=== PATIENT | male | born 1945 | race Caucasian/White ===

== ENCOUNTER → 2018-03-15 | Outpatient (CLI) | payer MEDICARE ==
--- NOTE | 2018-03-15 15:20 | US ---
EXAMINATION TYPE: US venous doppler duplex LE LT DATE OF EXAM: 03/15/2018 2:53 PM COMPARISON: NONE CLINICAL HISTORY: R60.0 Localized edema. left big toe swelling x 6 days. No hx of blood clots. No l eg redness or swelling. SIDE PERFORMED: Left TECHNIQUE: The lower extremity deep venous system is examined utilizing real time linear array sonog marai with graded compression, doppler sonography and color-flow sonography. VESSELS IMAGED: External Iliac Vein (EIV) Common Femoral Vein Deep Femoral Vein Greater Saphenous Vein * Femoral Vein Popliteal Vein Small Saphenous Vein * Proximal Calf Veins (* superficial vessels) Grayscale, color doppler, spectral doppler imaging performed of the deep veins of the left lower extr emity. There is normal flow, compressibility, vascular waveforms. Left Leg: Negative for DVT IMPRESSION: No sonographic evidence of deep venous thrombosis within the left lower extremity.
== END ==
LOC: RADUSWWP 14:29
PROVIDERS: ATTEND Physician Assistant
DX: R60.0 Localized edema (principal)

== ENCOUNTER → 2019-01-26 | Outpatient (CLI) | payer MEDICARE ==
--- NOTE | 2019-01-26 23:26 | MR ---
EXAMINATION TYPE: MR ankle RT wo con DATE OF EXAM: 01/26/2019 COMPARISON: None HISTORY: Right ankle pain Standard multiplanar, multisequence MRI departmental protocol Multiplanar, multisequence images of the ankle were acquired. Diffusion weighted imaging was performe d. FINDINGS: The Achilles tendon is intact. Plantar fascia appears intact. There is a small plantar calc aneal spur. The medial and lateral flexor tendons appear intact. There is a small ankle joint effusio n. The collateral ligaments appear intact. Ankle mortise is anatomic. I see no focal bone destruction . There is mild increased signal in the anterior talus on the T2 images consistent with mild edema. T here is minor spurring at the talonavicular joint. I see no fracture line. There is mild spurring of the posterior malleolus. There is mild increased joint fluid at the tarsome tatarsal joints. IMPRESSION: There is a 1.5 cm area of abnormal signal in the lateral aspect of the anterior talus at the talonavi cular joint. This could be focal area of avascular necrosis or a bone bruise.. No fracture line seen. No evidence of ligamentous tear. Minimal joint fluid consistent with mild ankle joint synovitis. Als o mild increased fluid at the tarsometatarsal joints also consistent with some synovitis.
== END | disposition home or self-care (01) ==
LOC: RADMRIMAIN 12:49
PROVIDERS: ATTEND Orthopaedic Surgery
DX: M19.071 Primary osteoarthritis, right ankle and foot (principal); I51.9 Heart disease, unspecified

== ENCOUNTER 2019-05-13 06:44 | Day surgery (SDC) | payer MEDICARE ==
[2019-05-10 13:54] VITALS: BMI 27.7
[~2019-05-13 06:44] MED LIST: LACTATED RINGERS 1,000 ML IV SCH
[2019-05-13 07:15] VITALS: RESP 18; TEMP 97.5
[2019-05-13] MEDS ORDERED: LACTATED RINGERS 1,000 ML IV ONE ×3 (07:19)
[2019-05-13] MEDS ORDERED: LIDOCAINE 1% INJ 10MG/ML (20 ML MDV) ONE (07:27)
[2019-05-13] MEDS ORDERED: PROPOFOL 10 MG/ML 20 ML VIAL IV ONE (07:27)
--- NOTE | 2019-05-13 07:50 | P.PCN ---
Date of Procedure: 05/13/19 Procedure(s) Performed: BRIEF HISTORY: Patient is a 74-year-old pleasant male scheduled for an elective colonoscopy as a part of evaluation of prior history of colon polyps. His last colonoscopy was 5 years ago. PROCEDURE PERFORMED: Colonoscopy. PREOPERATIVE DIAGNOSIS: History of colon polyps. IV sedation per Anesthesia. PROCEDURE: After informed consent was obtained, the patient, was brought into the endoscopy unit. IV sedation was administered by Anesthesia under continuous monitoring. Digital rectal examination was normal. Initially the Olympus CF-160 flexible video colonoscope was then inserted in the rectum, gradually advanced into the cecum without any difficulty. Careful examination was performed as the scope was gradually being withdrawn. Ileocecal valve and the appendiceal orifice were visualized and appeared normal. Prep was excellent. Mucosa of the cecum, ascending colon, transverse colon, descending colon, sigmoid colon, and rectum appeared normal. Retroflexion was performed in the rectum and no lesions were seen. Scattered sigmoid diverticulosis seen. The patient tolerated the procedure well. IMPRESSION: Normal-appearing colon from rectum to cecum with no evidence of colorectal neoplasia. Scattered sigmoid diverticulosis. RECOMMENDATIONS: Findings of this examination were discussed with the patient as well as his family. He was advised to have a repeat surveillance colonoscopy in 5 years from now because of the prior history of colon polyps..
[2019-05-13 08:10] VITALS: BP 110/68; PULSE 57
== END 2019-05-13 08:48 | disposition home or self-care (01) ==
LOC: ORWHC2ENDO 06:44
PROVIDERS: ATTEND Internal Medicine Gastroenterology
DX: Z12.11 Encounter for screening for malignant neoplasm of colon (principal); K57.30 Diverticulosis of large intestine without perforation or abscess without bleeding; Z86.010 Personal history of colon polyps; I25.10 Atherosclerotic heart disease of native coronary artery without angina pectoris; E78.5 Hyperlipidemia, unspecified; E11.9 Type 2 diabetes mellitus without complications; E07.9 Disorder of thyroid, unspecified; K21.9 Gastro-esophageal reflux disease without esophagitis; Z95.5 Presence of coronary angioplasty implant and graft; Z95.1 Presence of aortocoronary bypass graft; Z79.82 Long term (current) use of aspirin; Z79.890 Hormone replacement therapy; Z79.899 Other long term (current) drug therapy
CPT/HCPCS: J2001; J2704; G0105; 45378

== ENCOUNTER → 2020-06-18 | Outpatient (CLI) | payer MEDICARE ==
--- NOTE | 2020-06-18 09:47 | US ---
EXAMINATION TYPE: US abdomen complete DATE OF EXAM: 06/18/2020 COMPARISON: NONE CLINICAL HISTORY: 75-year-old male R10.33. With periumbilical pain TECHNIQUE: Multiple sonographic images of the abdomen are obtained. FINDINGS: EXAM MEASUREMENTS: Liver Length: 13.9 cm Gallbladder Wall: 0.2 cm CBD: 0.5 cm Spleen: 8.9 cm Right Kidney: 9.8 x 5.3 x 4.7 cm Left Kidney: 9.7 x 5.0 x 4.8 cm Mfts notes: Excessive overlying bowel gas, exam limited. Pancreas: Obscured by overlying bowel gas Liver: Limited visualization, left lobe obscured, portions visualized show slight increased echogenic ity. Gallbladder: wnl, partially obscured Evidence for sonographic Earl's sign: no CBD: wnl Spleen: partially visualization. Slightly unusual contour. Right Kidney: portions visualized wnl. No hydronephrosis. Left Kidney: portions visualized wnl no hydronephrosis. Upper IVC: obscured by overlying bowel Abd Aorta: partially obscured by bowel gas, portions visualized wnl IMPRESSION: 1. Overlying bowel gas limits the exam. 2. Portions of the visualized liver show a slight echogenic appearance suggesting mild hepatic steato sis. 2. Unusual contour of the spleen may be on a technical basis. Consider contrast enhanced CT to furthe r evaluate.
--- NOTE | 2020-06-18 12:16 | FL ---
EXAMINATION TYPE: FL UGI w small bowel DATE OF EXAM: 06/18/2020 COMPARISON: NONE HISTORY: Lower abdominal pain worse when laying flat for a couple weeks. TECHNIQUE: A double contrast UGI study is performed with small bowel follow through. A total of 1 mi nute 1 second fluoroscopic time utilized during procedure. 43 spot images are saved to PACS. FINDINGS: [employer] image of the abdomen shows no gross abnormality. The esophagus shows satisfactory motility and emptying into the stomach. No evidence of hiatal herni a or stricture noted. 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 The stomach shows satisfactory distensibility and peristalsis. Mild diffuse prominence of gastric fol ds. No evidence of any mass or ulcer disease. Moderate to severe gastroesophageal reflux with multipl e episodes into the distal one half of the esophagus identified during real-time performance of study . The duodenal bulb and sweep are unremarkable. The small bowel study shows normal transit to the colon in less than 60 minutes. There is normal muc osal fold pattern throughout the small bowel. There is no evidence of any stricture or filling defec t noted. The terminal ileum is spotted and appears within normal limits. IMPRESSION: Moderate to severe gastroesophageal reflux. Mild underlying diffuse gastritis. No focal ulcer disease. Normal time transition into colon noted.
== END | disposition home or self-care (01) ==
LOC: RADUSWWP 08:15
PROVIDERS: ATTEND Family Medicine
DX: K21.9 Gastro-esophageal reflux disease without esophagitis (principal)
CPT/HCPCS: 74240; 74248; 76700

== ENCOUNTER → 2020-07-25 | Outpatient (CLI) | payer MEDICARE ==
--- NOTE | 2020-07-25 09:19 | MR ---
EXAMINATION TYPE: MR abdomen wo/w con DATE OF EXAM: 07/25/2020 COMPARISON: Ultrasound abdomen and upper GI with small bowel series June 18, 2020. HISTORY: Lower abd pain CONTRAST: Standard multiplanar, multisequence MRI departmental protocol utilizing 8.5 ml mL intravenous Gadavis t gadolinium contrast. FINDINGS: There is some susceptibility artifact from overlying inferior sternal wires. Lung bases are grossly clear. The liver, gallbladder, pancreas, and both adrenal glands appear within normal limits . Spleen has somewhat unusual shape but measures normal in size without concerning mass or surroundin g ascites. There is no concerning renal mass or hydronephrosis. No suspicious small or large bowel di latation. No intra-abdominal ascites. No greater than 1 cm abdominal adenopathy. No AAA. Levoconvex s coliosis centered at L3 level with moderate multilevel spurring and disc space narrowing in the visua lized spine. IMPRESSION: No suspicious acute findings are evident.
== END | disposition home or self-care (01) ==
LOC: RADMRIMAIN 07:25
PROVIDERS: ATTEND Student in an Organized Health Care Education/Training Program
DX: R10.30 Lower abdominal pain, unspecified (principal)
CPT/HCPCS: 74183; A9585

== ENCOUNTER 2021-01-09 07:59 | Day surgery (SDC) | payer MEDICARE ==
[2021-01-07 13:22] VITALS: BMI 28.0
[~2021-01-09 07:59] MED LIST changes: +ALPRAZolam 0.25 MG TAB PO PRN; +ALPRAZolam 0.5 MG TAB PO PRN; +ASPIRIN 325 MG TAB PO ONE; +ASPIRIN 325 MG TAB PO STA; +ATORVASTATIN 80 MG TAB PO ONE; -LACTATED RINGERS 1,000 ML IV SCH; +NITROGLYCERIN SL TABS 0.4 MG TAB SUBLINGUAL PRN; +SODIUM CHLORIDE 0.9% 1,000 ML in EMPTY BAG 1 BAG IV SCH
[2021-01-09 08:30] VITALS: RESP 18; TEMP 98.2
[2021-01-09] MEDS ORDERED: LIDOCAINE 1% INJ 10MG/ML (20 ML MDV) ONE (09:10)
[2021-01-09] MEDS ORDERED: fentaNYL (PF) 50 MCG/ML 2 ML AMP ONE (09:19)
[2021-01-09] MEDS ORDERED: fentaNYL (PF) 50 MCG/ML 2 ML AMP IV ONE (09:28)
[2021-01-09] MEDS ORDERED: MIDAZOLAM 2 MG/2 ML VIAL IV ONE (09:28)
[2021-01-09] MEDS ORDERED: LIDOCAINE 1% INJ 10MG/ML (20 ML MDV) SQ ONE (09:32)
[2021-01-09] MEDS ORDERED: IOPAMIDOL-370 125ML BTL INJ ONE (09:53)
[2021-01-09] MEDS ORDERED: IOPAMIDOL-370 50ML BTL INJ ONE (10:01)
[2021-01-09] MEDS ORDERED: IOPAMIDOL-370 100ML BTL INJ ONE (10:27)
[2021-01-09] MEDS ORDERED: RX INFO: IV CONTRAST WAS GIVEN 1 EACH MISC MISCELLANE PRN (10:33)
[2021-01-09] MEDS ORDERED: SODIUM CHLORIDE 0.9% 1,000 ML IV SCH (10:45)
[2021-01-09 14:04] VITALS: PULSE 54
[2021-01-09 15:18] VITALS: BP 136/72
--- NOTE | 2021-01-09 16:54 | P.CARDCATH ---
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 Patient recently was complaining of some epigastric burning pain and had a stress test. He was found to have mild reversible ischemia in the anterolateral and inferolateral wall. He is advised to have a cardiac catheterization for definitive diagnosis CONSENT:I have discussed the risks, benefits and alternative therapies for the above-mentioned procedure and for both sedation/analgesia as well as necessary blood product administration, if indicated, as they pertain to this patient. The patient has indicated understanding and acceptance of the risks and procedures discussed. PROCEDURE: Patient was brought to the lab in a fasting state. Patient was given some IV sedation. The right groin is infiltrated with lidocaine and right femoral artery was entered using Seldinger technique. A 6-Frisian catheter was left in place and selective coronary arteriography and left ventriculography was performed. Patient tolerated the procedure well. Femoral angiogram was performed and Angio-Seal was applied for hemostasis. No immediate complications were noted and patient was transferred to [facility] in a stable condition Conscious Sedation: Versed 1.5mg Fentanyl 50 g Duration 27minutes HEMODYNAMICS: Aortic pressure is about 130/70. Left ankle end-diastolic pressure is about 5-10. No gradient across the aortic valve SELECTIVE CORONARY ARTERIOGRAPHY: LEFT MAIN: This is normal length with moderate ostial stenosis and about 95% to 99% distal stenosis before dividing into LAD and circumflex branches THE LEFT ANTERIOR DESCENDING CORONARY ARTERY: . This is totally occluded. There is a diagonal branch of moderate caliber THE LEFT CIRCUMFLEX AND IS CORONARY ARTERY: . This is totally occluded in the proximal portion THE RIGHT CORONARY ARTERY: . This is a good friend caliber vessel giving rise to PDA and PLV. There is mild diffuse disease. The FIGUEROA graft to left circumflex: This is patent throat its length and also to distal anastomosis. The distal circumflex appears to be free of any significant occlusive disease . The ELTON graft to the LAD: This could not be selectively studied. Subselective injection showed patent graft flow into the LAD. It's felt to be patent The free radial graft to the RCA: This seemed to be patent at the proximal and distal anastomosis. There is competitive flow in the distal RCA. The vein graft to the diagonal: Totally occluded at the ostium. The vein graft to the circumflex: This is totally occluded Aortic root injection: This was performed in 30 right and probably projection. No flow in the vein grafts noted. No evidence of any aortic regurgitation LEFT VENTRICULOGRAPHY: Not performed FINAL IMPRESSION: Significant left main disease, which supplies the diagonal branch. Total occlusion of the LAD and circumflex. Mild disease in the RCA with patent graft. The FIGUEROA graft to the circumflex is patent. The ELTON graft to the LAD appears to be patent PLAN: Maximum medical therapy. Consideration to be given for stent placement of the left main to improve the circulation in the diagonal distribution. We'll consult Dr. Ramos PROGNOSIS: Fair
== END 2021-01-09 15:20 | disposition home or self-care (01) ==
LOC: CATHCVL 07:59
PROVIDERS: ATTEND Internal Medicine Cardiovascular Disease
DX: I25.10 Atherosclerotic heart disease of native coronary artery without angina pectoris (principal); I25.82 Chronic total occlusion of coronary artery; Z20.822 Contact with and (suspected) exposure to COVID-19
CPT/HCPCS: 93459; 93567; 87635; C1760; C1769 ×3; C1894; J2250; J2001; J3010; Q9967 ×3